=== PATIENT | male | born 1955 | race Caucasian/White ===

== ENCOUNTER 2017-07-17 17:57 | Emergency (ER) | payer OTHER ==
[2017-07-17 18:02] VITALS: BP 123/81; PULSE 66; RESP 18; TEMP 98.1; O2SAT 96
--- NOTE | 2017-07-17 18:11 | EDPHY ---
H & P Stated Complaint: thumb injury Time Seen by Provider: 07/17/17 18:08 HPI/ROS: CHIEF COMPLAINT: Right thumb pain HISTORY OF PRESENT ILLNESS: Patient is a 62-year-old man who comes to the emergency department complaining of left thumb pain. He states that he fell from a rock wall and jammed his left thumb. It is bruised and swollen. This happened about 5 hours ago. He has normal range of motion but with pain. REVIEW OF SYSTEMS: Constitutional: denies: chills, fever, recent illness, recent injury EENTM: denies: blurred vision, double vision, nose congestion Respiratory: denies: cough, shortness of breath Cardiac: denies: chest pain, irregular heart rate, lightheadedness, palpitations Gastrointestinal/Abdominal: denies: abdominal pain, diarrhea, nausea, vomiting, blood streaked stools Genitourinary: denies: dysuria, frequency, hematuria, pain Musculoskeletal: denies: joint pain, muscle pain Skin: denies: lesions, rash, jaundice, bruising Neurological: denies: headache, numbness, paresthesia, tingling, dizziness, weakness Hematologic/Lymphatic: denies: blood clots, easy bleeding, easy bruising Immunologic/allergic: denies: HIV/AIDS, transplant EXAM: GENERAL: Well-appearing, well-nourished and in no acute distress. HEAD: Atraumatic, normocephalic. EYES: Pupils equal round and reactive to light, extraocular movements intact, sclera anicteric, conjunctiva are normal. ENT: TMs normal, nares patent, oropharynx clear without exudates. Moist mucous membranes. NECK: Normal range of motion, supple without lymphadenopathy or JVD. LUNGS: Breath sounds clear to auscultation bilaterally and equal. No wheezes rales or rhonchi. HEART: Regular rate and rhythm without murmurs, rubs or gallops. ABDOMEN: Soft, nontender, normoactive bowel sounds. No guarding, no rebound. No masses appreciated. BACK: No CVA tenderness, no spinal tenderness, step-offs or deformities EXTREMITIES: Left thumb swollen and painful. Mild laxity with radial deviation. NEUROLOGICAL: Cranial nerves II through XII grossly intact. Normal speech, normal gait. 5/5 strength, normal movement in all extremities, normal sensation PSYCH: Normal mood, normal affect. SKIN: Warm, dry, normal turgor, no visible rashes or lesions. Source: Patient Exam Limitations: No limitations - Personal History Current Tetanus/Diphtheria Vaccine: Unsure Tetanus Vaccine Date: WITHIN 10 YRS - Medical/Surgical History Hx Asthma: No Hx Chronic Respiratory Disease: No Hx Diabetes: No Hx Cardiac Disease: No Hx Renal Disease: No Hx Cirrhosis: No Hx Alcoholism: No Hx HIV/AIDS: No Hx Splenectomy or Spleen Trauma: No Other PMH: PSH: L hip; B shoulder;. PMH: denies - Family History Significant Family History: No pertinent family hx - Social History Smoking Status: Never smoked Alcohol Use: Sober Drug Use: None Constitutional: Initial Vital Signs Temperature (C) 36.7 C 07/17/17 18:00 Heart Rate 66 07/17/17 18:00 Respiratory Rate 18 07/17/17 18:00 Blood Pressure 123/81 H 07/17/17 18:00 O2 Sat (%) 96 07/17/17 18:00 O2 Delivery Mode Room Air Allergies/Adverse Reactions: No Allergies [NKA] Allergy (Verified 12/06/12 11:16) Home Medications: Medication Instructions Recorded Levothyroxine [Synthroid 175 mcg 175 mcg PO DAILY06 12/03/12 (RX)] HYDROmorphone HCL [Dilaudid 2 mg 2 mg PO Q4-6PRN PRN #10 tab 07/17/17 (RX)] Medical Decision Making - Diagnostics Imaging Results: Imaging Impressions Finger X-Ray 07/17/17 18:11 Impression: Negative. No acute fracture. Imaging: Discussed imaging studies w/ physically impaired teacher Radiologist Procedures: Procedure: Splint placement. A thumb spica splint was applied. After application of the splint I returned and re-examined the patient. The splint was adequately immobilizing the joint and distal to the splint the patient's circulation and sensation was intact. ED Course/Re-evaluation: We discussed the patient's x-ray results. I suspect that he has a gamekeeper's thumb. He has been placed in a Velcro thumb splint and will follow up with Hand surgery. He understands and agrees with this plan. He is requesting Vicodin. Differential Diagnosis: Partial list of the Differential diagnosis considered include but were not limited to; gamekeeper's thumb, fracture, contusion and although unlikely based on the history and physical exam, I also considered infection, vascular injury, nerve injury. I discussed these differential diagnoses and the plan with the patient as well as the usual and expected course. The patient understands that the diagnosis is provisional and that in medicine we are not always correct and that further workup is often warranted. Usual and customary warnings were given. All of the patient's questions were answered. The patient was instructed to return to the emergency department should the symptoms at all worsen or return, otherwise to followup with the physician as we discussed. Departure - Departure Disposition: Home, Routine, Self-Care Clinical Impression: Gamekeeper's thumb of left hand Qualifiers: Encounter type: initial encounter Qualified Code(s): S53.32XA - Traumatic rupture of left ulnar collateral ligament, initial encounter Condition: Fair Instructions: Skier's Thumb (ED) Referrals: Eric Blanca MD [Primary Care Provider] - As per Instructions Marcie Reid MD [Medical Doctor] - As per Instructions Prescriptions: HYDROmorphone HCL [Dilaudid 2 mg (RX)] 2 mg PO Q4-6PRN PRN #10 tab PRN Reason: Pain, Mild
== END 2017-07-17 19:02 | disposition home or self-care (01) ==
DX: S53.32XA Traumatic rupture of left ulnar collateral ligament, initial encounter (principal); W13.8XXA Fall from, out of or through other building or structure, initial encounter

== ENCOUNTER 2018-01-24 14:33 | Emergency (ER) | payer OTHER ==
[2018-01-24 14:46] VITALS: O2SAT 96
--- NOTE | 2018-01-24 15:07 | EDPHY ---
H & P Smoking Status: Never smoked Time Seen by Provider: 01/24/18 14:53 HPI/ROS: CHIEF COMPLAINT: Right knee pain post skiing HISTORY OF PRESENT ILLNESS: 62-year-old male arrives via private vehicle complaining of acute right knee pain which occurred 4 days ago when he was skiing, crossed his skis, felt pain in his left knee. Was able to continue skiing but notes progressive pain throughout the day and the next day. He is now unable to bear weight secondary to pain to his right knee pain. PRIMARY CARE PROVIDER: REVIEW OF SYSTEMS: A ten point review of systems was performed and is negative with the exception of the items mentioned in the HPI PHYSICAL EXAM (Prior to examination, patient consented to physical exam, hands were washed and my usual and customary physical exam procedures followed) 1) GENERAL: Well-developed, well-nourished, alert and oriented. Appears to be in no acute distress. 2) HEAD: Normocephalic 3) HEENT: Pupils equal, round, reactive to light bilaterally. 4) LUNGS: Breathing comfortably. 5) MUSCULOSKELETAL: Exam of the right knee shows soft tissue swelling, tender to palpation popliteal fossa, tender to palpation medial aspect. Reproducible pain with range of motion. . Compartments are soft. 6) SKIN: Normal color and temperature 7) VASCULAR: DP,PT pulses and cap refill present and brisk distally DIFFERENTIAL DIAGNOSIS: in no particular order including but not limited to fracture, sprain, compartment syndrome, septic arthritis, DVT Xray of the right knee interpreted by myself: no definitive acute osseous abnormality Procedure: Crutches indications for crutch use discussed with patient. Patient fitted for crutches by ER staff. Observed ambulating with crutches. I think the patient has the capacity to safely use crutches. Usual and customary crutch walking precautions provided Procedure: Splint A knee immobilizer splint was applied by ER distance learning technician. After application of the splint I returned and re-examined the patient. The splint was adequately immobilizing the joint and distal to the splint the patient's circulation and sensation were intact. Patient shows no signs of compartment syndrome. Was given orthopedic precautions. MEDICAL DECISION MAKING Serial evaluations performed on patient. I discussed the limitations of x-ray in diagnosis of knee pain and injury. At this time I do not think that emergent MRI is currently indicated. However, I have recommended follow-up with Orthopedic surgery . He has an existing relationship with [facility] Dr. Uri Woodard and prefers follow up there. A specifically requests prescription for Dilaudid knowing that this is only medication that affective with minimal side effects. Informed the patient that outpatient MRI may be indicated. Care of patient under supervision of primary Supervising physician Dr Ricardo Fernandez. (Celia Mcgregor) Constitutional: Initial Vital Signs Temperature (C) 36.7 C 01/24/18 14:43 Heart Rate 66 01/24/18 14:43 Respiratory Rate 16 01/24/18 14:43 Blood Pressure 170/98 H 01/24/18 14:43 O2 Sat (%) 96 01/24/18 14:43 O2 Delivery Mode Room Air Allergies/Adverse Reactions: No Allergies [NKA] Allergy (Verified 12/06/12 11:16) Home Medications: Medication Instructions Recorded Levothyroxine [Synthroid 175 mcg 175 mcg PO DAILY06 12/03/12 (RX)] HYDROmorphone HCL [Dilaudid 2 mg 2 mg PO Q6 PRN #7 tab 01/24/18 (RX)] MDM/Departure - MDM ED Course/Re-evaluation: PHYSICIAN DOCUMENTATION: The patient was evaluated and managed by the Physician [employer]. My co- signature indicates that I have reviewed this chart and I agree with the findings and plan of care as documented. I am the secondary supervising physician. (Alonso Fernandez) - Depart Disposition: Home, Routine, Self-Care Clinical Impression: Right knee sprain Qualifiers: Encounter type: initial encounter Involved ligament of knee: unspecified ligament Qualified Code(s): S83.91XA - Sprain of unspecified site of right knee , initial encounter Condition: Good Instructions: Knee Sprain (ED) Additional Instructions: Return to the ER immediately if you experience discoloration, have worsening pain, numbness, tingling, or any other symptoms that concern you. If you received x-rays in the emergency department today, be advised, that ligamentous , tendon, muscular, and other non-bony injury cannot be fully ruled out. Try to keep your affected extremity elevated above the level of your chest, and keep cold packs on the affected area, for the next 48 hours. Prescriptions: HYDROmorphone HCL [Dilaudid 2 mg (RX)] 2 mg PO Q6 PRN #7 tab PRN Reason: Pain, Severe Referrals: Uri Woodard MD [Medical Doctor] - 2-3 days, call for appt.
[2018-01-24 15:47] VITALS: BP 150/85; PULSE 69; RESP 18; TEMP 98
== END 2018-01-24 16:02 | disposition home or self-care (01) ==
DX: S83.91XA Sprain of unspecified site of right knee, initial encounter (principal); V00.328A Other snow-ski accident, initial encounter; Y93.23 Activity, snow (alpine) (downhill) skiing, snowboarding, sledding, tobogganing and snow tubing
CPT/HCPCS: L1830